=== PATIENT | female | born 2000 | race Caucasian/White ===

== ENCOUNTER 2018-10-03 14:26 | Observation (INO) | payer OTHER ==
[~2018-10-03 14:26] MED LIST: Lidocaine 1% PF 5 ML VIAL ONE; Ondansetron PF 4 MG/2 ML Vial ONE; PROPOFOL 200 MG/20 ML VIAL ONE; Rocuronium Bromide 10 MG/ML (10ML VIAL) ONE; Succinylcholine Chloride 20 MG/ML 10 ml SYRINGE FS ONE
[2018-10-03] MEDS ORDERED: Morphine 4 MG/ML VIAL ONE (15:07)
[2018-10-03] MEDS ORDERED: Ondansetron PF 4 MG/2 ML Vial ONE (15:07)
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
--- NOTE | 2018-10-03 15:55 | RAD ---
THREE VIEWS LEFT HAND: 10/03/18 AP, lateral, and oblique views left hand demonstrates new amputation and displaced fracture involving the distal phalanx second digit left hand. There is extensive adjacent soft tissue injury. No other acute abnormality seen. IMPRESSION: Acute fracture with severe adjacent maceration of the soft tissue involving distal aspect second digi t left hand. This involves the distal phalanx. POS: [facility]
[2018-10-03] MEDS ORDERED: CEFAZOLIN 1 GM VIAL ONE (16:49)
[2018-10-03] MEDS ORDERED: SODIUM CHLORIDE IVPB SCH (17:00)
[2018-10-03] MEDS ORDERED: PENICILLIN POTASSIUM IVPB SCH (17:00)
[2018-10-03] MEDS ORDERED: Gentamicin Sulfate 80 MG in Premix Bag 1 BAG IVPB SCH (17:00)
[2018-10-03 19:31] LABS: BHCG - Serum Negative (NEGATIVE); Pregs Control Background? CLEAR/WHITE (CLR/WHITE); Pregs Control Bar Appear? YES (CONTROL BAR)
[2018-10-03] MEDS ORDERED: Bacitracin Zinc Ointment 30 gm TUBE ONE (19:53)
[2018-10-03] MEDS ORDERED: Sodium Chloride 0.9% 60 ML ONE (19:53)
[2018-10-03] MEDS ORDERED: Bupivacaine PF 0.5% 30 ML VIAL ONE (19:53)
[2018-10-03] MEDS ORDERED: Thrombin 5000 UNITS/5 ML VIAL ONE (19:53)
[2018-10-03] MEDS ORDERED: Fentanyl 100 MCG/2 ML VIAL ONE ×2 (20:42→21:42)
[2018-10-04] MEDS ORDERED: Ondansetron HCl/PF 4 MG/2 ML Vial IVP PRN (00:39)
[2018-10-04] MEDS ORDERED: Morphine Sulfate 2 MG/ML SYRINGE SLOW IVP PRN (00:39)
[2018-10-04] MEDS ORDERED: Promethazine HCl 25 MG/ML VIAL SLOW IVP PRN (00:39)
[2018-10-04] MEDS ORDERED: Promethazine HCl 25 MG/ML VIAL IM PRN (00:39)
[2018-10-04] MEDS ORDERED: Fentanyl 100 MCG/2 ML VIAL ONE (00:51)
[2018-10-04] MEDS ORDERED: traMADol HCl 50 MG TAB PO PRN (00:54)
[2018-10-04] MEDS ORDERED: Acetaminophen 325 MG TAB PO PRN (00:54)
[2018-10-04] MEDS ORDERED: HYDROcodone/Acetaminophen 5/325 mg Tablet PO PRN (00:54)
[2018-10-04] MEDS ORDERED: HYDROcodone/Acetaminophen 10/325 mg Tablet PO PRN (00:54)
[2018-10-04] MEDS ORDERED: Ondansetron PF 4 MG/2 ML Vial IV PRN (00:54)
[2018-10-04] MEDS ORDERED: Meperidine HCl/PF 25 MG/ML VIAL IM PRN (00:59)
[2018-10-04] MEDS ORDERED: TETANUS AND DIPHTHERIA TOX/PF 0.5 ML DISP.SYRIN IM SCH (01:00)
[2018-10-04] MEDS ORDERED: Vancomycin HCl 1 GM in Premix Bag 1 BAG IVPB SCH ×2 (02:30→09:00)
[2018-10-04] MEDS ORDERED: Morphine 4 MG/ML VIAL SLOW IVP PRN (02:34)
[2018-10-04 04:05] VITALS: BMI 31.9
[2018-10-04 04:50] LABS: Anion Gap 12 mmol/L (10-20); BUN (Urea Nitrogen) 8 mg/dL (7.0-18.7); Calc. Creatinine Clearance 157 mL/min (70-130); Calcium 8.7 mg/dL (7.8-10.44); Carbon Dioxide 21 mmol/L (22-29); Chloride 111 mmol/L (98-107); Estimated GFR-MDRD 90; Glucose 132 mg/dL (70-105); Potassium 3.6 mmol/L (3.5-5.1); Sodium 140 mmol/L (136-145)
[2018-10-04] MEDS: Ketorolac Tromethamine 30 MG/ML VIAL IVP SCH ×2 (05:29→14:02)
--- NOTE | 2018-10-04 08:30 | RAD ---
LEFT INDEX FINGER THREE FLUOROSCOPIC SPOT IMAGES: COMPARISON: 10/03/2018 FINDINGS: There has been interval reduction of a distal phalangeal fracture of the left index finger with percu taneous pinning. Total fluoroscopic time is 21 seconds. Total exposure is 0.41 mGy. IMPRESSION: Interval percutaneous pinning of distal interphalangeal joint and distal phalangeal fracture of the l eft index finger. POS: [facility]
--- NOTE | 2018-10-04 08:38 | RAD ---
RIGHT INDEX FINGER TWO FLUOROSCOPIC SPOT IMAGES: INDICATIONS: ORIF of right finger. COMPARISON: Three views of right hand, dated 10/03/2018. FINDINGS: Since the comparison examination, there has been reduction and percutaneous pinning of the right smal l finger middle phalangeal fracture. Fracture line is near anatomic. Instrumentation projects in th e expected position. Total fluoroscopic time was 73.6 seconds. Total exposure was 2.32 mGy. IMPRESSION: Open reduction and internal fixation of small finger, middle phalangeal fracture. POS: [facility]
[2018-10-04] MEDS ORDERED: Aspirin 81 mg Enteric Coated Tablet PO SCH (09:00)
[2018-10-04] MEDS ORDERED: Vancomycin HCl 1.5 GM in Sodium Chloride 0.9% 250 ML 300 ML IVPB SCH (15:00)
[2018-10-04 16:47] VITALS: BP 134/70; TEMP 98.4
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
== END 2018-10-04 18:22 | disposition home or self-care (01) ==
LOC: ERS 14:26 → SDC 18:06 → 3SE 10-04 00:54
PROVIDERS: ADMIT Orthopaedic Surgery Hand Surgery; ATTEND Orthopaedic Surgery Hand Surgery
PROC: 0PST04Z Reposition Right Finger Phalanx with Internal Fixation Device, Open Approach (ICD-10-PCS; principal; 2018-10-04)
PROC: 0PBT0ZZ Excision of Right Finger Phalanx, Open Approach (ICD-10-PCS; 2018-10-04)
PROC: 0PSV04Z Reposition Left Finger Phalanx with Internal Fixation Device, Open Approach (ICD-10-PCS; 2018-10-04)
PROC: 0JBK0ZZ Excision of Left Hand Subcutaneous Tissue and Fascia, Open Approach (ICD-10-PCS; 2018-10-04)
PROC: 0PBS0ZZ Excision of Left Thumb Phalanx, Open Approach (ICD-10-PCS; 2018-10-04)
DX: S66.326A Laceration of extensor muscle, fascia and tendon of right little finger at wrist and hand level, initial encounter (principal); S62.616B Displaced fracture of proximal phalanx of right little finger, initial encounter for open fracture; S62.631B Displaced fracture of distal phalanx of left index finger, initial encounter for open fracture; J45.909 Unspecified asthma, uncomplicated; Z79.3 Long term (current) use of hormonal contraceptives; W24.1XXA Contact with transmission devices, not elsewhere classified, initial encounter
CPT/HCPCS: 36415; 76000; 80048; 84703; 90471; 90686; 96365; 96367; 96375; 96376; G0008; G0378; G0390; J0690; J1580; J1885; J2001; J2270; J2405; J2540; J2704; J3010; J3370; J3490; J7050; S0020

== ENCOUNTER 2019-07-09 11:46 | Day surgery (SDC) | payer OTHER ==
[2019-07-06 13:36] VITALS: BMI 32.3
[2019-07-09] MEDS ORDERED: Betamet Acet/Betamet Na Ph 30 MG/5 ML VIAL ONE (12:46)
[2019-07-09] MEDS ORDERED: Bupivacaine PF 0.5% 30 ML VIAL ONE (12:46)
[2019-07-09] MEDS ORDERED: Bacitracin Zinc Ointment 30 gm TUBE ONE (12:46)
[2019-07-09] MEDS ORDERED: Sodium Chloride 0.9% 0 ML ONE (12:48)
[2019-07-09 13:18] LABS: #Lymphocytes 2.2 thou/uL (1.20-3.40); #Monocytes 0.3 thou/uL (0.11-0.59); #Neutrophils 4.1 thou/uL (1.40-6.50); %Basophils 0.7 % (0.0-1.0); %Eosinophils 0.4 % (0.0-10.0); %Monocytes 4.6 % (0.0-10.0); %Neutrophils 61.3 % (42.0-75.0); Hemoglobin 13.5 g/dL (12.0-16.0); Mean Corpuscular Hemoglobin 28.8 pg (27.0-31.0); Mean Corpuscular Volume 84.7 fL (78.0-98.0); Mean Platelet Volume 9.1 fL (7.4-10.4); Platelet Count 180 thou/uL (130-400); RBC Distribution Width 12.1 % (11.5-14.5); Red Blood Cell (RBC) Count 4.69 mill/uL (4.20-5.40); White Blood Cell (WBC) Count 6.7 thou/uL (4.8-10.8)
[2019-07-09] MEDS ORDERED: Fentanyl 100 MCG/2 ML VIAL ONE ×3 (13:54→15:45)
[2019-07-09] MEDS ORDERED: Midazolam HCl 2 mg/2 ml Vial ONE (13:59)
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
[2019-07-09] MEDS ORDERED: Promethazine HCl 25 MG/ML VIAL ONE (17:07)
--- NOTE | 2019-07-12 15:32 | RAD ---
FINGERS RIGHT HAND: 07/12/19 Two fluoroscopic images from OR are presented. INDICATIONS: Hardware removal fifth finger. FINDINGS/IMPRESSION: Retractors and pin is seen overlying the PIP joint of the fifth finger. POS: [facility]
== END 2019-07-09 17:50 | disposition home or self-care (01) ==
LOC: SDC 11:46
PROVIDERS: ATTEND Orthopaedic Surgery Hand Surgery
PROC: 0LU707Z Supplement Right Hand Tendon with Autologous Tissue Substitute, Open Approach (ICD-10-PCS; principal; 2019-07-09)
DX: M20.021 Boutonniere deformity of right finger(s) (principal); M24.541 Contracture, right hand; Z88.1 Allergy status to other antibiotic agents
CPT/HCPCS: 76000; 85025; J0690; J0702; J2250; J2550; J3010; J3490; S0020

== ENCOUNTER 2023-09-30 10:58 | Outpatient (CLI) | payer OTHER | END 2023-09-30 10:59 | disposition home or self-care (01) | LOC: SCSRAD 10:58 | PROVIDERS: ATTEND Nurse Practitioner Family | DX: M25.511 Pain in right shoulder (principal) ==

== ENCOUNTER 2023-12-15 06:18 | Day surgery (SDC) | payer OTHER ==
[2023-12-14 12:17] VITALS: BMI 35.5
[2023-12-15] MEDS ORDERED: Dexmedetomidine 200 MCG/2 ML VIAL ONE (06:24)
[2023-12-15] MEDS ORDERED: Midazolam HCl 2 mg/2 ml Vial ONE (06:25)
[2023-12-15] MEDS ORDERED: fentaNYL PF 100 MCG/2 ML SYRINGE ONE (06:25)
[2023-12-15] MEDS ORDERED: EPINEPHrine 1 MG/ML VIAL ONE (06:34)
[2023-12-15] MEDS ORDERED: Lidocaine 1% (PF) 30 ML VIAL ONE (06:34)
[2023-12-15] MEDS ORDERED: SUGAMMADEX SODIUM 200 MG/2 ML VIAL ONE (06:35)
[2023-12-15] MEDS ORDERED: PROPOFOL 40 ML ONE (06:35)
[2023-12-15] MEDS ORDERED: CEFAZOLIN 2 GM VIAL ONE (06:58)
[2023-12-15] MEDS ORDERED: Sodium Chloride 0.9% 100 ML ONE (06:58)
[2023-12-15 07:11] LABS: #Basophils Less than 0.03 10x3/uL (0.0-0.2); %Basophils 0.3 % (0.0-1.0); %Eosinophils 1.3 % (0.0-10.0); %Monocytes 7.4 % (0.0-10.0); %Neutrophils 60.7 % (42.0-75.0); Hematocrit 40.8 % (36.0-47.0); Hemoglobin 13.6 g/dL (12.0-16.0); Mean Corpuscular HGB CONC 33.3 g/dL (32.0-36.0); Mean Corpuscular Hemoglobin 29.3 pg (27.0-31.0); Mean Corpuscular Volume 87.9 fL (78.0-98.0); Mean Platelet Volume 11.3 fL (7.4-10.4); Platelet Count 212 10x3/uL (130-400); RBC Distribution Width 13.2 % (11.5-14.5); Red Blood Cell (RBC) Count 4.64 mill/uL (4.20-5.40)
[2023-12-15 07:23] LABS: BHCG - Serum Negative (NEGATIVE); Pregs Control Background? CLEAR/WHITE (CLR/WHITE); Pregs Control Bar Appear? YES (CONTROL BAR)
[2023-12-15] MEDS ORDERED: Ropivacaine 0.5% HCl/PF (150 MG/30 ML VIAL) ONE (07:40)
[2023-12-15] MEDS ORDERED: Rocuronium Bromide 10 MG/ML (10ML VIAL) ONE (07:40)
[2023-12-15] MEDS ORDERED: ePHEDrine Sulfate 50 MG/10 ML VIAL ONE (08:04)
[2023-12-15] MEDS ORDERED: Glycopyrrolate 0.2 MG/ML 5 ML SYRINGE ONE (08:18)
[2023-12-15] MEDS ORDERED: Ropivacaine 0.2% 550 ML 550 ML NERVE BLCK SCH (08:30)
[2023-12-15] MEDS ORDERED: Zolpidem Tartrate 5 MG TAB PO PRN (08:30)
[2023-12-15] MEDS ORDERED: HYDROcodone/Acetaminophen 5/325 mg Tablet PO PRN ×2 (08:30)
[2023-12-15] MEDS ORDERED: Ondansetron PF 4 MG/2 ML Vial IVP PRN (08:30)
[2023-12-15] MEDS ORDERED: Promethazine HCl 25 MG/ML VIAL IM PRN (08:30)
[2023-12-15] MEDS ORDERED: traMADol HCl 50 MG TAB PO PRN ×2 (08:30)
[2023-12-15] MEDS ORDERED: Ketorolac Tromethamine 30 MG (1 mL) VIAL IVP PRN (08:30)
[2023-12-15] MEDS ORDERED: fentaNYL 50 mcg/mL 1 mL Vial ONE (09:20)
== END 2023-12-15 11:40 | disposition home or self-care (01) ==
LOC: SDC 06:18
PROVIDERS: ATTEND Orthopaedic Surgery
PROC: 0LM14ZZ Reattachment of Right Shoulder Tendon, Percutaneous Endoscopic Approach (ICD-10-PCS; principal; 2023-12-15)
DX: S46.011A Strain of muscle(s) and tendon(s) of the rotator cuff of right shoulder, initial encounter (principal); M25.311 Other instability, right shoulder; J45.909 Unspecified asthma, uncomplicated; Z79.899 Other long term (current) drug therapy; Z88.1 Allergy status to other antibiotic agents; Z98.890 Other specified postprocedural states; V19.9XXA Pedal cyclist (driver) (passenger) injured in unspecified traffic accident, initial encounter
CPT/HCPCS: 84703; 85025; A4306; C1713; J0171; J2001; J2250; J2704; J2795; J3010; J3490

== ENCOUNTER 2023-12-16 03:42 | Emergency (ER) | payer OTHER ==
[2023-12-16] MEDS ORDERED: traMADol HCl 50 MG TAB ONE (04:09)
[2023-12-16] MEDS ORDERED: Lidocaine 2% PF 5 ML VIAL ONE (08:44)
[2023-12-16] MEDS ORDERED: Ropivacaine 0.5% HCl/PF (150 MG/30 ML VIAL) ONE (08:45)
[2023-12-16] MEDS ORDERED: Zolpidem Tartrate 5 MG TAB PO PRN (11:00)
[2023-12-16] MEDS ORDERED: Promethazine HCl 25 MG/ML VIAL IM PRN (11:00)
[2023-12-16] MEDS ORDERED: Ropivacaine 0.2% 550 ML 550 ML NERVE BLCK SCH (11:00)
[2023-12-16] MEDS ORDERED: Ondansetron PF 4 MG/2 ML Vial IVP PRN (11:00)
== END 2023-12-16 11:54 | disposition home or self-care (01) ==
LOC: ERS 03:42
DX: T82.598A Other mechanical complication of other cardiac and vascular devices and implants, initial encounter (principal); G89.18 Other acute postprocedural pain; M25.512 Pain in left shoulder
CPT/HCPCS: A4306; J2001; J2550; J2795